=== PATIENT | male | born 1980 | race Two or more races ===

== ENCOUNTER 2016-08-04 22:50 | Emergency (ER) | END 2016-08-04 23:20 | disposition left against medical advice (07) | LOC: CED 22:50 | DX: Z53.21 Procedure and treatment not carried out due to patient leaving prior to being seen by health care provider (principal) ==

== ENCOUNTER 2016-09-07 22:06 | Emergency (ER) | payer BC ==
--- NOTE | ~2016-09-07 | CT4 ---
[facility] A Service of [facility] & [facility] RADIOLOGY TEXT RESULTS PATIENT: STEPHANE GARCIA LOCATION: [facility] : 78 UNIT #: [id number] AGE: [address]: David Tobar MD SEX: M ORDER DR: [id number] [facility] [address] [place], [place] [address] [id number] E MR#: [id number] Acc #: [id number] NAME: STEPHANE GARCIA : 1980 SEX: M STUDY DATE/TIME: 09/08/2016 3:36 UNIT: [facility] ROOM: STUDY DESCRIPTION: CT Abd and Pelv Wo Cont Attending Physician: David Tobar M.D. Ordering Physician: David Tobar M.D. Primary Care Physician: No Primary Care Physician MEDICAL IMAGING REPORT This report is preliminary unless electronic signature is present EXAM CT abdomen and pelvis, noncontrast, kidney stone protocol, 09/08/2016 HISTORY 36-year-old male in the ED complaining of 1-day history of bilateral flank pain. History of kidney stones. TECHNIQUE CT examination of the abdomen and pelvis without oral or IV contrast using kidney stone protocol. This CT exam was performed with one or more of the following radiation dose reduction techniques: automatic exposure control, adjustment of mA and/or kV according to patient size, and iterative reconstruction. FINDINGS ABDOMEN FINDINGS: 5 mm obstructing stone in the proximal right ureter just below the UPJ causing amde-[id number] right hydronephrosis. Single tiny nonobstructing calculus within the mid portion of each kidney measuring about 2 mm on the right and 3 mm on the left. Kidneys, ureters, and bladder are otherwise negative. Single large gallstone within nondistended gallbladder. No bile duct dilatation. Liver, pancreas and spleen are within normal limits. Small bowel and colon are normal in caliber and appearance, as imaged. The appendix is normal. PELVIS FINDINGS: Bladder, prostate, and rectum are negative. IMPRESSION 1. 5 mm obstructing calculus in the right upper ureter below the UPJ causing deko-ib-fnpotodu right hydronephrosis. 2. Tiny nonobstructing calculus within the mid portion of each kidney [facility]. [facility] A Service of [facility] & [facility] RADIOLOGY TEXT RESULTS PATIENT: STEPHANE GARCIA LOCATION: [facility] : 78 UNIT #: [id number] AGE: [address]: David Tobar MD SEX: M ORDER DR: measuring 2-3 mm. 3. Single large gallstone within contracted gallbladder. No bile duct dilatation. 4. Normal appendix. Dictated by... Sebastien Valladares M.D. THIS IS AN ELECTRONICALLY VERIFIED REPORT Sebastien Valladares M.D. at 09/08/2016 9:54 PM LISBETHW/srikanth TD: 09/08/2016 14:12 JOB #: [id number] MEDICAL IMAGING REPORT Page 1 of 1 COPY
[2016-09-08 02:22] LABS: URINE SOURCE CLEAN CATCH
[2016-09-08 02:27] LABS: URINE APPEARANCE CLOUDY; URINE BILIRUBIN NEG (NEG); URINE BLOOD 1+ (NEG); URINE COLOR YELLOW; URINE GLUCOSE NEG (NEG); URINE KETONE 1+ (NEG); URINE LEUKOCYTE ESTERASE NEG (NEG); URINE NITRATE NEG (NEG); URINE PROTEIN 1+ (NEG)
[2016-09-08 02:30] LABS: URINE BACTERIA AUWI NEG (NEGATIVE); URINE SQUAMOUS EPITHELIAL CELL NONE SEEN /[HPF]; UWBCS1 AUWI 0-2 (0-5)
[2016-09-08 02:33] LABS: CULTURE INDICATED? NO
[2016-09-08 03:11] LABS: BUN/CREATININE RATIO 7.69; CALCIUM SERUM 9.7 mg/dL (8.4-10.2); CREATININE SERUM 1.3 mg/dL (0.6-1.4); GLOM FILT RATE Estimated 69.7 mL/min (>60); POTASSIUM 3.5 mmol/L (3.5-5.1)
[2016-09-08 03:17] LABS: BASOPHIL% 0.2 % (0-2.5); EOSINOPHIL# 0.1 X10e3 (0-0.7); EOSINOPHIL% 0.4 % (0.0-7.0); HEMATOCRIT 48.2 % (38.0-50.0); HEMOGLOBIN 16.4 gm/dL (13.0-16.0); LYMPHOCYTE# 2.2 X10e3 (1.0-3.5); LYMPHOCYTE% 16.8 % (17.0-45.0); MEAN CELL VOLUME 85.2 FL (83-96); MEAN CORPUSCULAR HEMOGLOBIN 28.9 PG (28-34); MEAN PLATELET VOLUME 9.4 FL (6.5-11.5); MONOCYTE# 0.7 X10e3 (0-1.0); MONOCYTE% 5.5 % (3.0-12.0); NEUTROPHIL# 10.2 X10e3 (1.5-7.1); NEUTROPHIL% 77.1 % (40-75); PLATELET COUNT 240 X10e3 (140-420); RED BLOOD COUNT 5.66 X10e (3.90-5.60); RED CELL DISTRIBUTION WIDTH 12.5 % (11.0-15.5); WHITE BLOOD COUNT 13.3 X10e3 (4.0-10.5)
[2016-09-08 03:20] LABS: DIFF IND NO
== END 2016-09-08 04:45 | disposition home or self-care (01) ==
LOC: CED 22:06
PROVIDERS: Emergency Medicine
DX: N13.2 Hydronephrosis with renal and ureteral calculous obstruction (principal)
CPT/HCPCS: 36415; 74176; 80048; 81003; 85025; 96361; 96374; 96375; 99284; J1885; J2405

== ENCOUNTER 2016-10-29 12:16 | Inpatient (IN) | payer BC ==
[~2016-10-29] VITALS: Ht 185.4 cm; Wt 74.8 kg
--- NOTE | ~2016-10-29 | HP ---
Unit #: [id number] #: [id number] Patient: STEPHANE GARCIA [id number] [address] [address] [id number] I MR#: [id number] NAME: STEPHANE GARCIA ROOM: 02238 Age: 36 Sex: M Admission Date: 10/29/2016 : 1980 Attending Physician: Lamberto Kingston M.D. HISTORY AND PHYSICAL CHIEF COMPLAINT Fever. HISTORY OF PRESENT ILLNESS The patient is a 36-year-old male with recent lithotripsy and stent placement who presented to [facility] Emergency Department with four days of fever. The patient states that his fevers have been associated with dysuria and severe back pain. His symptoms are somewhat alleviated with pain medications given in the emergency department. PAST MEDICAL HISTORY Hypertension. PAST SURGICAL HISTORY Lithotripsy. SOCIAL HISTORY The patient denies tobacco, alcohol, or illicit drug use. FAMILY HISTORY Diabetes and hypertension. ALLERGIES No known drug allergies. HOME MEDICATIONS Enalapril. REVIEW OF SYSTEMS A 10-point review of systems was obtained and negative except as per History of Present Illness. PHYSICAL EXAMINATION VITAL SIGNS: Temperature 101.9, pulse 119, and blood pressure 126/80. GENERAL: A 36-year-old male in no acute distress who appears stated age. HEENT: Pupils equally round. Extraocular movements intact. Mucous membranes are dry. NECK: Supple. No JVD, no lymphadenopathy. CARDIAC: Regular rate and rhythm. No murmurs, gallops, or rubs. LUNGS: Clear to auscultation bilaterally. ABDOMEN: Tender to palpation left upper and lower quadrants with associated left flank pain. No rebound. EXTREMITIES: No clubbing, cyanosis, or edema. They are warm and dry. Unit #: [id number] #: [id number] Patient: STEPHANE GARCIA PSYCHIATRIC: Alert and oriented x3. Affect is appropriate. NEUROLOGIC: Cranial nerves II-XII intact grossly. Patient moves all extremities equally and with purpose. SKIN: No rashes, bruises, or ulcers. MUSCULOSKELETAL: No muscle or joint pain. No muscle or joint swelling. DIAGNOSTIC STUDIES LABORATORY: Patient's creatinine is 2.4 which is up from 1.3 approximately two weeks ago and sodium 130. Urinalysis shows 3+ leukocyte esterase, positive nitrites, enumerable white cells, and 200-300 red cells. IMAGING: CT shows no evidence of hydronephrosis and ureteral stent in place. Patient is noted to have a 4 mm nonobstructing stone in the distal right ureter. Patient is also noted to have right-sided pyelonephritis. ASSESSMENT AND PLAN 1. Pyelonephritis. The patient will be started on Rocephin 1 gram IV daily. A consult has been placed to [facility]. 2. Acute pain. I have started the patient on the Dilaudid protocol. 3. Hypertension. I will continue the patient's home enalapril. 4. Prophylaxis. The patient has been started on sequential compression devices. 1. Dictated by Marianna Armenta/sal TD: 10/29/2016 20:27 JOB #: [id number] HISTORY AND PHYSICAL Page 1 of 1 X Lamberto Kingston MD X HISTORY AND PHYSICAL
--- NOTE | ~2016-10-29 | CO ---
Unit #: [id number] #: [id number] Patient: STEPHANE GARCIA [id number] [address] [address] [id number] I MR#: [id number] NAME: STEPHANE GARCIA ROOM: 241 Age: 36 Sex: M Admission Date: 10/29/2016 : 1980 Attending Physician: Lamberto Kingston M.D. Primary Care Physician: Primary Care Physician No CONSULTATION REPORT HISTORY OF PRESENT ILLNESS The patient is a 36-year-old gentleman, who had a stent placed by my partner last week. I am not sure and it is not clear if he had shockwave or any other procedure performed at the time. The patient's states he did not take his antibiotics until 3 days after the procedure. The patient had been prescribed antibiotic by partners. The patient has some back pain. Has some dysuria and had a fever. PAST MEDICAL HISTORY Hypertension and stent placement with and without lithotripsy. SOCIAL HISTORY Denies smoking or drugs. FAMILY HISTORY Noncontributory. REVIEW OF SYSTEMS Negative for 10 systems except for some right flank discomfort, which is better. MEDICATIONS AT HOME Enalapril. PHYSICAL EXAMINATION VITAL SIGNS: He is afebrile. Vital signs stable; however, most recent temperature actually was 102.4, T-max was 103.2, pulse is 109 down from 117, blood pressure is 110/65. CARDIAC: Benign. PULMONARY: Benign. NEUROLOGIC: Cranial nerves II through XII intact. NECK: Midline and supple. HEENT: Eyes equal and reactive to light. ABDOMEN: Soft without rebound or guarding. There is no CVA tenderness. GENITALIA: Benign external genitalia. EXTREMITIES: No clubbing, cyanosis, or edema. DIAGNOSTIC STUDIES LABORATORY RESULTS: Creatinine is still elevated at 2.4. White count 12.7. Urinalysis positive for leukocytes and nitrites. Urine cultures pending. Blood cultures pending. ASSESSMENT The patient with double-J stent in place, has suspected urinary tract Unit #: [id number] #: [id number] Patient: STEPHANE GARCIA infection with the stent in good position. Would not change his stent at this point. The 5 mm stone in the distal ureter. The report from Radiology mentions proximal ureter, but when I reviewed the films earlier, the stone appeared to be in the distal ureter and appeared to be alongside his existing stent. I will re-review the films because it is contradicted by the report. If the stone is in position with the stents also in good position, would not perform any stent change at this time. We will wait for urine cultures to come back. Continue IV support and IV antibiotics. Thank you for the referral. Dictated by... Mango Whitmore M.D. DAVID/angelika TD: 10/30/2016 15:24 JOB #: [id number] CONSULTATION REPORT Page 1 of 1 X Mango Wihtmore MD X CONSULTATION REPORT
--- NOTE | ~2016-10-29 | CT4 ---
[facility] A Service of [facility] & [facility] RADIOLOGY TEXT RESULTS PATIENT: STEPHANE GARCIA LOCATION: C2A 241-01 : [birth year] UNIT #: [id number] AGE: [address]: Lamberto Kingston MD SEX: M ORDER DR: [id number] [facility] [address] [place], [place] [address] [id number] I MR#: [id number] Acc #: [id number] NAME: STEPHANE GARCIA : 1980 SEX: M STUDY DATE/TIME: 10/29/2016 16:56 UNIT: C2A ROOM: 241 STUDY DESCRIPTION: CT Abd and Pelv Wo Cont Attending Physician: Lamberto Kingston M.D. Ordering Physician: Ross Segura M.D. Primary Care Physician: Primary Care Physician No MEDICAL IMAGING REPORT This report is preliminary unless electronic signature is present EXAM CT scan of the abdomen and pelvis without contrast, 10/29/2016 HISTORY Right flank pain, pain with urination for 4 days. History of kidney stones and recent lithotripsy. Evaluate for obstructing renal calculus. TECHNIQUE Spiral CT was performed through the abdomen and pelvis without oral or intravenous contrast administration using renal stone protocol. This CT exam was performed with one or more of the following radiation dose reduction techniques: automatic exposure control, adjustment of mA and/or kV according to patient size, and iterative reconstruction. FINDINGS ABDOMEN: There is a right ureteral stent in place with the proximal aspect of the stent in the upper pole giovany of the right kidney and the distal aspect within the bladder. Directly adjacent to the stent in the distal ureter located approximately the 3.0 cm proximal to the right ureterovesical junction there is a 4.0 mm radiodensity characteristic of a stone. There is no evidence of hydronephrosis. There is inflammatory stranding surrounding the right kidney and right ureter. There are nonobstructing renal stones bilaterally. Visualized liver, spleen, pancreas and adrenal glands are normal. Calcified gallstones are seen within the gallbladder lumen. There is no intra or extrahepatic biliary ductal dilatation. PELVIS: The gut, mesenteric and cassy structures are normal. There is no free fluid in the abdomen or pelvis. The lung bases are normal. IMPRESSION 1. There is no evidence of hydronephrosis. Right ureteral stent is in place and in good position. There is however a 4.0 mm radiodensity STS. [facility] A Service of [facility] & [facility] RADIOLOGY TEXT RESULTS PATIENT: STEPHANE GARCIA LOCATION: [place] [address] : [birth year] UNIT #: [id number] AGE: [address]: Lamberto Kingston MD SEX: M ORDER DR: characteristic of a nonobstructing stone in the distal right ureter located approximately 3.0 cm proximal to the right ureterovesical junction. Inflammatory stranding is seen in the right perinephric and periureteral fat. 2. Multiple nonobstructing renal stones bilaterally. 3. Cholelithiasis. Dictated by... Miguel Angel Ty M.D. THIS IS AN ELECTRONICALLY VERIFIED REPORT Miguel Angel Ty M.D. at 10/30/2016 2:13 PM ERICA/santana TD: 10/30/2016 09:16 JOB #: [id number] MEDICAL IMAGING REPORT Page 1 of 1 COPY
--- NOTE | ~2016-10-29 | DS ---
Unit #: [id number] #: [id number] Patient: STEPHANE GARCIA [id number] [address] [address] [id number] I MR#: [id number] NAME: STEPHANE GARCIA ROOM: 241 Age: 36 Sex: M Admission Date: 10/29/2016 : 1980 Discharge Date: 11/02/2016 Attending Physician: Lamberto Kingston M.D. Primary Care Physician: No Primary Care Physician DISCHARGE SUMMARY DISCHARGE DIAGNOSES 1. Sepsis. 2. Extended spectrum beta lactamases, Escherichia coli. 3. Pyelonephritis. 4. Acute pain. 5. Acute kidney injury. HOSPITAL COURSE The patient is a 36-year-old male with recent history of lithotripsy and stent placement, who presented to [facility] Emergency Department on October 29, 2016, secondary to fevers. In the emergency department, he was noted to have dysuria and severe back pain. CT of the abdomen revealed a right ureteral stent that was in good position and inflammatory stranding of the right perinephric and periureteral fat. The patient was thought to be suffering from pyelonephritis and admitted for antibiotic therapy. The patient was initially started on Rocephin; however, cultures ultimately grew an ESBL producing E. coli. As a result, Rocephin was changed to Merrem and the patient is now doing well. Fevers initially as high as 103.2 have resolved. The patient is eating and tolerating his antibiotics well. As a result, he is being discharged home to finish up a 10-day course. The patient was offered PICC line and IV antibiotics; however, he has opted for 10 more days of IM Invanz. DISCHARGE MEDICATIONS 1. Enalapril 20 mg daily. 2. Percocet 5/325 one p.o. q.6 hours p.r.n. 3. Invanz 1 g IM x10 days to be given at short stay. FOLLOWUP Patient should follow up with urology at the end of his antibiotic course. Dictated by... Lamberto Kingston M.D. GINGER/angel TD: 11/03/2016 10:17 JOB #: [id number] Unit #: [id number] #: [id number] Patient: STEPHANE GARCIA DISCHARGE SUMMARY Page 1 of 1 X Lamberto Kingston MD X DISCHARGE SUMMARY
[2016-10-29 14:43] LABS: URINE SOURCE CLEAN CATCH
[2016-10-29 14:44] LABS: BASOPHIL% 0.1 % (0-2.5); HEMATOCRIT 44.5 % (38.0-50.0); HEMOGLOBIN 15.3 gm/dL (13.0-16.0); LYMPHOCYTE# 1.1 X10e3 (1.0-3.5); MEAN CELL VOLUME 86.2 FL (83-96); MEAN CORPUSCULAR HEMOGLOBIN 29.6 PG (28-34); MEAN CORPUSCULAR HGB CONC 34.3 g/dL (30-36); MEAN PLATELET VOLUME 8.8 FL (6.5-11.5); MONOCYTE# 1.4 X10e3 (0-1.0); MONOCYTE% 9.5 % (3.0-12.0); NEUTROPHIL# 12.4 X10e3 (1.5-7.1); NEUTROPHIL% 83.4 % (40-75); PLATELET COUNT 186 X10e3 (140-420); RED BLOOD COUNT 5.16 X10e (3.90-5.60); RED CELL DISTRIBUTION WIDTH 13.5 % (11.0-15.5); WHITE BLOOD COUNT 14.9 X10e3 (4.0-10.5)
[2016-10-29 14:46] LABS: DIFF IND YES
[2016-10-29 14:54] LABS: URINE APPEARANCE TURBID; URINE BLOOD 3+ (NEG); URINE COLOR DK YELLOW; URINE GLUCOSE NEG (NEG); URINE KETONE TRACE (NEG); URINE LEUKOCYTE ESTERASE 3+ (NEG); URINE NITRATE POS (NEG); URINE PROTEIN 3+ (NEG); URINE SPECIFIC GRAVITY 1.026 (1.003-1.035)
[2016-10-29 14:57] LABS: CULTURE INDICATED? YES; URBCS1 AUWI 200-300 /[HPF] (0-2); URINE BACTERIA AUWI NEG (NEGATIVE); URINE SQUAMOUS EPITHELIAL CELL FEW /[HPF]; UWBCS1 AUWI INNUM (0-5)
[2016-10-29 15:05] LABS: PLATELET ESTIMATE NORMAL (NORMAL)
[2016-10-29 15:06] LABS: BUN/CREATININE RATIO 7.91; CALCIUM SERUM 9.3 mg/dL (8.4-10.2); CREATININE SERUM 2.4 mg/dL (0.6-1.4); GLOM FILT RATE Estimated 33.2 mL/min (>60); POTASSIUM 4.7 mmol/L (3.5-5.1)
[2016-10-29] MEDS ORDERED: ENALAPRIL MALEA20 MG PO (22:09)
[2016-10-29 22:21] LABS: BASOPHIL% 0.1 % (0-2.5); EOSINOPHIL% 0.1 % (0.0-7.0); HEMATOCRIT 39.4 % (38.0-50.0); LYMPHOCYTE# 0.7 X10e3 (1.0-3.5); LYMPHOCYTE% 5.8 % (17.0-45.0); MEAN CELL VOLUME 86.2 FL (83-96); MEAN CORPUSCULAR HEMOGLOBIN 28.7 PG (28-34); MEAN CORPUSCULAR HGB CONC 33.3 g/dL (30-36); MEAN PLATELET VOLUME 8.7 FL (6.5-11.5); MONOCYTE# 1.2 X10e3 (0-1.0); MONOCYTE% 9.5 % (3.0-12.0); NEUTROPHIL# 10.8 X10e3 (1.5-7.1); NEUTROPHIL% 84.5 % (40-75); PLATELET COUNT 124 X10e3 (140-420); RED BLOOD COUNT 4.57 X10e (3.90-5.60); RED CELL DISTRIBUTION WIDTH 13.1 % (11.0-15.5); WHITE BLOOD COUNT 12.7 X10e3 (4.0-10.5)
[2016-10-29 22:23] LABS: DIFF IND NO; HEMOGLOBIN 13.1 gm/dL (13.0-16.0)
[2016-10-30 16:01] LABS: BUN/CREATININE RATIO 8.75; CALCIUM SERUM 7.4 mg/dL (8.4-10.2); CREATININE SERUM 1.6 mg/dL (0.6-1.4); GLOM FILT RATE Estimated 54.3 mL/min (>60); POTASSIUM 4.3 mmol/L (3.5-5.1)
[2016-10-31 05:59] LABS: HEMATOCRIT 36.3 % (38.0-50.0); HEMOGLOBIN 12.2 gm/dL (13.0-16.0); MEAN CELL VOLUME 86.7 FL (83-96); MEAN CORPUSCULAR HEMOGLOBIN 29.2 PG (28-34); MEAN CORPUSCULAR HGB CONC 33.6 g/dL (30-36); MEAN PLATELET VOLUME 8.6 FL (6.5-11.5); RED BLOOD COUNT 4.19 X10e (3.90-5.60); RED CELL DISTRIBUTION WIDTH 13.3 % (11.0-15.5); WHITE BLOOD COUNT 10.5 X10e3 (4.0-10.5)
[2016-10-31 06:19] LABS: BUN/CREATININE RATIO 7.69; CALCIUM SERUM 7.9 mg/dL (8.4-10.2); CREATININE SERUM 1.3 mg/dL (0.6-1.4); GLOM FILT RATE Estimated 69.7 mL/min (>60); POTASSIUM 4.1 mmol/L (3.5-5.1)
[2016-11-01 05:32] LABS: MEAN CELL VOLUME 86.6 FL (83-96); MEAN CORPUSCULAR HEMOGLOBIN 29.7 PG (28-34); MEAN CORPUSCULAR HGB CONC 34.3 g/dL (30-36); MEAN PLATELET VOLUME 8.9 FL (6.5-11.5); RED BLOOD COUNT 4.04 X10e (3.90-5.60); RED CELL DISTRIBUTION WIDTH 13.6 % (11.0-15.5)
[2016-11-01 06:24] LABS: CALCIUM SERUM 8.1 mg/dL (8.4-10.2); CREATININE SERUM 1.1 mg/dL (0.6-1.4); GLOM FILT RATE Estimated 85.3 mL/min (>60); POTASSIUM 4.2 mmol/L (3.5-5.1)
[2016-11-02] MEDS ORDERED: PERCOCET5/325 PO (10:57)
== END 2016-11-02 12:13 | disposition home or self-care (01) | DRG 872 ==
LOC: CED 12:16 → CEDOF 19:38 → C2A 19:38
PROVIDERS: Emergency Medicine; Internal Medicine
DX: A41.9 Sepsis, unspecified organism (principal); N17.9 Acute kidney failure, unspecified; N12 Tubulo-interstitial nephritis, not specified as acute or chronic; B96.20 Unspecified Escherichia coli [E. coli] as the cause of diseases classified elsewhere; Z16.12 Extended spectrum beta lactamase (ESBL) resistance; I10 Essential (primary) hypertension; Z83.3 Family history of diabetes mellitus; Z82.49 Family history of ischemic heart disease and other diseases of the circulatory system
CPT/HCPCS: 74176; 80048; 81003; 83605; 85025; 85027; 87040; 87086; 87186; 96374; 96375; 99285; J0696; J1170; J2185; J3010; J3370

== ENCOUNTER → 2016-11-03 | Outpatient (CLI) | payer BC ==
[~2016-11-03] MED LIST: ENALAPRIL MALEA20 MG PO; PERCOCET5/325 PO
== END | disposition home or self-care (01) ==
LOC: CSSDAY 06:40
DX: N10 Acute pyelonephritis (principal); N17.9 Acute kidney failure, unspecified
CPT/HCPCS: J1335

== ENCOUNTER → 2016-11-04 | Outpatient (CLI) | payer BC | END | disposition home or self-care (01) | LOC: CSSDAY 06:39 | DX: N10 Acute pyelonephritis (principal); N17.9 Acute kidney failure, unspecified | CPT/HCPCS: J1335 ==

== ENCOUNTER → 2016-11-05 | Outpatient (CLI) | payer BC | END | disposition home or self-care (01) | LOC: CSSDAY 09:02 | DX: N10 Acute pyelonephritis (principal); N17.9 Acute kidney failure, unspecified | CPT/HCPCS: 96372; J1335 ==

== ENCOUNTER → 2016-11-06 | Outpatient (CLI) | payer BC | END | disposition home or self-care (01) | LOC: CSSDAY 08:28 | DX: N17.9 Acute kidney failure, unspecified (principal); N10 Acute pyelonephritis | CPT/HCPCS: 96372; J1335 ==

== ENCOUNTER → 2016-11-07 | Outpatient (CLI) | payer BC | END | disposition home or self-care (01) | LOC: CSSDAY 08:33 | DX: N17.9 Acute kidney failure, unspecified (principal); N10 Acute pyelonephritis | CPT/HCPCS: 96372; J1335 ==

== ENCOUNTER → 2016-11-08 | Outpatient (CLI) | payer BC | END | disposition home or self-care (01) | LOC: CSSDAY 08:23 | DX: N17.9 Acute kidney failure, unspecified (principal); N10 Acute pyelonephritis | CPT/HCPCS: 96372; J1335 ==

== ENCOUNTER → 2016-11-09 | Outpatient (CLI) | payer BC | END | disposition home or self-care (01) | LOC: CSSDAY 08:59 | DX: N10 Acute pyelonephritis (principal); N17.9 Acute kidney failure, unspecified | CPT/HCPCS: 96372; J1335 ==

== ENCOUNTER → 2016-11-10 | Outpatient (CLI) | payer BC | END | disposition home or self-care (01) | LOC: CSSDAY 06:52 | DX: N10 Acute pyelonephritis (principal); N17.9 Acute kidney failure, unspecified; Z79.2 Long term (current) use of antibiotics | CPT/HCPCS: 96372; J1335 ==

== ENCOUNTER → 2016-11-11 | Outpatient (CLI) | payer BC | END | disposition home or self-care (01) | LOC: CSSDAY 06:58 | DX: N10 Acute pyelonephritis (principal); N17.9 Acute kidney failure, unspecified; Z79.2 Long term (current) use of antibiotics | CPT/HCPCS: 96372; J1335 ==

== ENCOUNTER → 2016-11-12 | Outpatient (CLI) | payer BC | END | disposition home or self-care (01) | LOC: CSSDAY 08:52 | DX: N10 Acute pyelonephritis (principal); N17.9 Acute kidney failure, unspecified; Z79.2 Long term (current) use of antibiotics | CPT/HCPCS: 96372; J1335 ==